=== PATIENT | male | born 1995 | race Hispanic/Latino ===

== ENCOUNTER 2021-03-28 19:38 | Emergency (ER) | payer BC, SELFPAY ==
[2021-03-28 19:52] VITALS: BP 140/77; PULSE 91; RESP 16; TEMP 36.6; O2SAT 100
[2021-03-28 20:04] VITALS: BP 140/77; PULSE 91; RESP 16; TEMP 36.6; O2SAT 100
--- NOTE | 2021-03-28 20:13 | ED.EAR ---
HPI - Ear Problem General Chief complaint: Ear Stated complaint: ear pain Time Seen by Provider: 03/28/21 19:57 Source: patient and RN notes reviewed Mode of arrival: ambulatory Limitations: no limitations History of Present Illness HPI Narrative: Patient presents today complaining of left ear pain x3 days with decreased hearing and clear ear drainage. Reports pressure to the ear when he blows his nose. Denies cough, rhinorrhea, congestion, headache. He is currently pain-free. He has tried some peroxide and Debrox as well as some Tylenol without relief. MD Complaint: ear pain, ear discharge and decreased hearing Related Data Home Medications Medication Instructions Recorded Confirmed No Home Medications 03/28/21 03/28/21 Allergies Allergy/AdvReac Type Severity Reaction Status Date / Time Penicillins Allergy Intermediate Other Verified 03/28/21 19:49 Review of Systems Review of Systems: Narrative: CONSTITUTIONAL: Denies body aches, fever, chills, or sweats. EYES: Denies visual changes, redness, or discharge. ENT: Denies rhinorrhea, congestion, sore throat. + Left ear pain with decreased hearing CARDIOVASCULAR: Denies chest pain, palpitations, or edema. RESPIRATORY: Denies cough or dyspnea. GASTROINTESTINAL: Denies abdominal pain, nausea, vomiting, or diarrhea. GENITOURINARY: Denies dysuria or hematuria. SKIN: Denies rash, itching, or wounds. MUSCULOSKELETAL: Denies back pain, joint pain, or myalgia. NEUROLOGIC: Denies headache, numbness, tingling, or weakness. PSYCH: Denies depression or anxiety. PMFSH Comments At time of signature, I have reviewed and agree with nursing past medical, surgical, social and family history unless otherwise noted. Please see nursing chart for further information. There is no relevant family history pertinent to the presenting complaint Exam Narrative: Exam Narrative: GENERAL: Well-appearing, well-nourished, and in no acute distress. HEAD: Normocephalic, atraumatic. EYES: EOMI. No redness or drainage. Conjunctivae normal. ENT: Mucous membranes pink and moist. Nares clear. No rhinorrhea. Right TM normal. Left TM occluded with wax that is deep in the ear canal, likely pressing against the TM. See procedure note. Throat normal. Uvula midline. NECK: Normal AROM. Supple. No lymphadenopathy. CHEST: No respiratory distress. EXTREMITIES: Normal range of motion. No edema. SKIN: Warm, dry, no rash. Capillary refill normal. Normal skin turgor. NEURO: No focal deficits. Alert and oriented x3. Gait steady. PSYCH: Normal affect. No signs of depression or anxiety. Course Vital Signs Vital signs: Vital Signs Temperature 98 F 03/28/21 19:52 Pulse Rate 91 03/28/21 19:52 Respiratory Rate 16 03/28/21 19:52 Blood Pressure 140/77 03/28/21 19:52 Pulse Oximetry 100 03/28/21 19:52 Temperature 98 F 03/28/21 20:04 Pulse Rate 91 03/28/21 20:04 Respiratory Rate 16 03/28/21 20:04 Blood Pressure 140/77 03/28/21 20:04 Pulse Oximetry 100 03/28/21 20:04 Reviewed. Pt has been instructed to follow up with his PCP regarding his elevated blood pressure today. Procedures Ear Wax Removal Left Ear: Ear Wax Removal Date: 03/28/21 Ear Wax Removal Time: 20:13 Cerumenolytic Used: other (Water and hydrogen peroxide) Results: Re-examined: cerumen removed completely TM Examination: TM(s) intact, normal appearance Ear Canal Exam: atraumatic Patient Tolerated Procedure: well Complications: no problems Technique: ear canal irrigated Medical Decision Making Differential Diagnosis Differential Diagnosis: Otitis media, otitis externa, ruptured TM, serous otitis, eustachian tube dysfunction, cerumen impaction Vital Signs Vital Signs: Vital Signs Temperature 98 F 03/28/21 19:52 Pulse Rate 91 03/28/21 19:52 Respiratory Rate 16 03/28/21 19:52 Blood Pressure 140/77 03/28/21 19:52 Pulse Oximetry 100 05
== END 2021-03-28 20:15 | disposition home or self-care (01) ==
PROVIDERS: Emergency Provider Nurse Practitioner
DX: H61.22 Impacted cerumen, left ear (principal)
CPT/HCPCS: 69209; 99212; G0463

== ENCOUNTER 2021-04-01 09:44 | Emergency (ER) | payer BC, SELFPAY ==
[2021-04-01 09:56] VITALS: BP 143/89; PULSE 78; RESP 16; TEMP 37.1; O2SAT 100
--- NOTE | 2021-04-01 10:40 | ED.EAR ---
HPI - Ear Problem General Chief complaint: Ear Stated complaint: ear pain Time Seen by Provider: 04/01/21 10:31 Source: patient and RN notes reviewed Mode of arrival: ambulatory Limitations: no limitations History of Present Illness HPI Narrative: Patient presents today complaining of left ear pain. He was seen at [facility] a few days ago and had a cerumen impaction that was cleaned out. States he had improved pain once the cerumen was removed, but the following day his pain started to worsen and has worsened up until today. He had been taking some [id number] pain medicine without relief. Reports clear discharge. MD Complaint: ear pain and ear discharge Related Data Home Medications Medication Instructions Recorded Confirmed No Home Medications 03/28/21 04/01/21 Allergies Allergy/AdvReac Type Severity Reaction Status Date / Time Penicillins Allergy Intermediate Other Verified 04/01/21 10:04 Review of Systems Review of Systems: Narrative: CONSTITUTIONAL: Denies body aches, fever, chills, or sweats. EYES: Denies visual changes, redness, or discharge. ENT: Denies rhinorrhea, congestion, sore throat. + Left ear pain and drainage CARDIOVASCULAR: Denies chest pain, palpitations, or edema. RESPIRATORY: Denies cough or dyspnea. GASTROINTESTINAL: Denies abdominal pain, nausea, vomiting, or diarrhea. GENITOURINARY: Denies dysuria or hematuria. SKIN: Denies rash, itching, or wounds. MUSCULOSKELETAL: Denies back pain, joint pain, or myalgia. NEUROLOGIC: Denies headache, numbness, tingling, or weakness. PSYCH: Denies depression or anxiety. PMFSH Comments At time of signature, I have reviewed and agree with nursing past medical, surgical, social and family history unless otherwise noted. Please see nursing chart for further information. There is no relevant family history pertinent to the presenting complaint Exam Narrative: Exam Narrative: GENERAL: Well-appearing, well-nourished, and in no acute distress. HEAD: Normocephalic, atraumatic. EYES: EOMI. No redness or drainage. Conjunctivae normal. ENT: Mucous membranes pink and moist. Right ear normal. Left ear canal is mildly edematous with thick white drainage consistent with otitis externa. NECK: Normal AROM. CHEST: No respiratory distress. EXTREMITIES: Normal range of motion. No edema. SKIN: Warm, dry, no rash. Capillary refill normal. Normal skin turgor. NEURO: No focal deficits. Alert and oriented x3. Gait steady. PSYCH: Normal affect. No signs of depression or anxiety. Course Vital Signs Vital signs: Vital Signs Temperature 98.7 F 04/01/21 09:56 Pulse Rate 78 04/01/21 09:56 Respiratory Rate 16 04/01/21 09:56 Blood Pressure 143/89 H 04/01/21 09:56 Pulse Oximetry 100 04/01/21 09:56 Temperature 98.7 F 04/01/21 09:56 Pulse Rate 78 04/01/21 09:56 Respiratory Rate 16 04/01/21 09:56 Blood Pressure 143/89 H 04/01/21 09:56 Pulse Oximetry 100 04/01/21 09:56 Reviewed. Pt has been instructed to follow up with his PCP regarding his elevated blood pressure today. Medical Decision Making Differential Diagnosis Differential Diagnosis: Otitis media, otitis externa, ruptured TM, serous otitis, eustachian tube dysfunction, cerumen impaction Vital Signs Vital Signs: Vital Signs Temperature 98.7 F 04/01/21 09:56 Pulse Rate 78 04/01/21 09:56 Respiratory Rate 16 04/01/21 09:56 Blood Pressure 143/89 H 04/01/21 09:56 Pulse Oximetry 100 04/01/21 09:56 Temperature 98.7 F 04/01/21 09:56 Pulse Rate 78 04/01/21 09:56 Respiratory Rate 16 04/01/21 09:56 Blood Pressure 143/89 H 04/01/21 09:56 Pulse Oximetry 100 04/01/21 09:56 Critical Care Time Critical Care Time Critical Care Time: No Discharge Plan Discharge Prescriptions: No Action No Home Medications RF: 0
== END 2021-04-01 10:53 | disposition home or self-care (01) ==
PROVIDERS: Emergency Provider Nurse Practitioner
DX: H60.92 Unspecified otitis externa, left ear (principal)
CPT/HCPCS: 99211; G0463